=== PATIENT | female | born 1990 | race African-American/Black ===

== ENCOUNTER 2016-05-10 07:35 | Emergency (ER) | payer MEDICAID ==
[~2016-05-10] VITALS: Ht 167.6 cm; Wt 54.5 kg
[~2016-05-10 07:35] MED LIST: FAMO20TA7 PO; HYDR-3138 PO; METR500T PO; ONDA4TAB10 PO
[2016-05-10] MEDS ORDERED: KETOROLAC 30 MG/1 ML IVPush ONE (08:00)
[2016-05-10] MEDS ORDERED: METOCLOPRAMIDE 5 MG/ML, 2ML IVPush ONE (08:00)
[2016-05-10] MEDS ORDERED: DIPHENHYDRAMINE 50 MG/ML, 1ML IVPush ONE (08:00)
[2016-05-10] MEDS ORDERED: SODIUM CHLORIDE 0.9% 1,000ML IV ONE (08:00)
[2016-05-10] MEDS ORDERED: SODIUM CHLORIDE FLUSH 10ML SYR IVF ONE (08:00)
[2016-05-10] MEDS ORDERED: KETOROLAC 30 MG/1 ML ONE (08:11)
[2016-05-10] MEDS ORDERED: METOCLOPRAMIDE 5 MG/ML, 2ML ONE (08:12)
[2016-05-10] MEDS ORDERED: DIPHENHYDRAMINE 50 MG/ML, 1ML ONE (08:12)
[2016-05-10 08:17] LABS: HEMOGLOBIN 15.6 g/dL (11.7-16.4)
[2016-05-10 08:26] LABS: ASPARTATE AMINO TRANSFERASE 11 U/L (15-37); BLOOD UREA NITROGEN 11 mg/dL (7-18)
[2016-05-10] MEDS ORDERED: POTASSIUM CHLORIDE 40 MEQ in SODIUM CHLORIDE 0.9% 500 ML IV ONE (09:00)
[2016-05-10] MEDS: POTASSIUM CHLORIDE 20 MEQ TAB.ER.PRT PO ONE ×2 (09:40→11:14)
[2016-05-10] MEDS ORDERED: MORPHINE SULFATE 4 MG/ML, 1ML ONE (11:13)
[2016-05-10] MEDS ORDERED: ONDANSETRON 2MG/ML, 2ML ONE (11:13)
[2016-05-10] MEDS ORDERED: ONDANSETRON 2MG/ML, 2ML IVPush ONE (11:30)
[2016-05-10] MEDS ORDERED: morphine SULFATE 10 MG/ML, 1ML IVPush ONE (11:30)
[2016-05-10 14:24] LABS: BLOOD UREA NITROGEN 10 mg/dL (7-18)
[2016-05-10 15:33] LABS: ICTOTEST NEGATIVE
[2016-05-10] MEDS ORDERED: MAALOX/HYOSCYAMINE/LIDOCAINE 45 ML BOTTLE ONE (16:54)
[2016-05-10 17:10] VITALS: BP 118/70
[2016-05-10] MEDS ORDERED: MAALOX/HYOSCYAMINE/LIDOCAINE 45 ML BOTTLE PO ONE (17:30)
== END 2016-05-10 17:13 | disposition home or self-care (01) ==
LOC: ED 08:38
DX: R11.2 Nausea with vomiting, unspecified (principal); M54.5 Low back pain; R10.9 Unspecified abdominal pain; G89.29 Other chronic pain
CPT/HCPCS: 36415; 80048; 80053; 81001; 84132; 84703; 85025; 93005; 96361; 96365; 96366; 96375; 99285; J1200; J1885; J2270; J2405; J2765; J3480; J7030; J7040

== ENCOUNTER 2016-06-06 14:45 | Emergency (ER) | payer MEDICAID ==
[~2016-06-06] VITALS: Ht 165.1 cm; Wt 47.0 kg
[2016-06-06 15:54] LABS: BLOOD UREA NITROGEN 7 mg/dL (7-18)
[2016-06-06] MEDS ORDERED: FAMOTIDINE 20 MG/2 ML IVP ONE (16:00)
[2016-06-06] MEDS ORDERED: SODIUM CHLORIDE FLUSH 10ML SYR IVF ONE (16:00)
[2016-06-06] MEDS ORDERED: ONDANSETRON 2MG/ML, 2ML IVPush ONE (16:00)
[2016-06-06] MEDS ORDERED: SODIUM CHLORIDE 0.9% 1,000ML IVBOLUS ONE (16:00)
[2016-06-06 16:14] LABS: ASPARTATE AMINO TRANSFERASE 10 U/L (15-37)
[2016-06-06] MEDS ORDERED: ONDANSETRON 2MG/ML, 2ML ONE (16:26)
[2016-06-06] MEDS ORDERED: FAMOTIDINE 20 MG/2 ML ONE (16:27)
[2016-06-06 18:33] VITALS: BP 102/68
== END 2016-06-06 18:36 | disposition home or self-care (01) ==
LOC: ED 18:30
DX: R11.2 Nausea with vomiting, unspecified (principal); M54.9 Dorsalgia, unspecified; G89.29 Other chronic pain
CPT/HCPCS: 36415; 80048; 80076; 81003; 82040; 83690; 84702; 84703; 85025; 99284

== ENCOUNTER 2016-06-08 09:47 | Emergency (ER) | payer MEDICAID ==
[~2016-06-08] VITALS: Ht 165.1 cm; Wt 45.2 kg
[2016-06-08 09:47] VITALS: BP 104/72
[2016-06-08] MEDS ORDERED: LIDOCAINE 2%, 10ML INFIL ONE (10:30)
[2016-06-08] MEDS ORDERED: LIDOCAINE-MPF 2% ,5ML ONE (10:40)
== END 2016-06-08 11:49 | disposition left against medical advice (07) ==
LOC: ED 11:03
DX: K61.1 Rectal abscess (principal); F17.210 Nicotine dependence, cigarettes, uncomplicated
CPT/HCPCS: 99281

== ENCOUNTER 2017-04-11 05:02 | Emergency (ER) | payer MEDICAID ==
[~2017-04-11] VITALS: Ht 165.1 cm; Wt 55.0 kg
[~2017-04-11 05:02] MED LIST changes: -HYDR-3138 PO; +HYDR-3237 PO
[2017-04-11] MEDS ORDERED: METOCLOPRAMIDE 5 MG/ML, 2ML ONE (05:22)
[2017-04-11] MEDS ORDERED: METOCLOPRAMIDE 5 MG/ML, 2ML IVPush ONE (05:30)
[2017-04-11 05:43] LABS: ALANINE AMINOTRANSFERASE 12 U/L (12-78); ALBUMIN 3.7 g/dL (3.4-5.0); ANION GAP 9 mmol/L (5-15); CALCIUM 8.6 mg/dL (8.5-10.1); CHLORIDE 113 mmol/L (98-107)
[2017-04-11 05:48] LABS: ALKALINE PHOSPHATASE 54 U/L (45-117); BILIRUBIN,TOTAL 0.7 mg/dL (0.2-1.0); TOTAL PROTEIN 7.1 g/dL (6.4-8.2)
[2017-04-11] MEDS ORDERED: HALOPERIDOL 5 MG/ML ONE (05:53)
[2017-04-11 05:56] LABS: BASOPHILS # (AUTO) 0.08 x10^3/uL (0-0.1); BASOPHILS % (AUTO) 1 % (0-1); EOSINOPHILS # (AUTO) 0.05 x10^3/uL (0-0.4); EOSINOPHILS % (AUTO) 1 % (1-7); LYMPHOCYTES # (AUTO) 2.65 x10^3/uL (1-3.4); LYMPHOCYTES % (AUTO) 41 % (22-44); MD MORPH REVIEW ONLY; MEAN CORPUSCULAR HEMOGLOBIN 27.8 pg (27.0-34.8); MEAN CORPUSCULAR HGB CONC 32.8 g/dL (32.4-35.8); MEAN CORPUSCULAR VOLUME 84.6 fL (80-100); MEAN PLATELET VOLUME 9.7 fL (7.4-10.4); MONOCYTES # (AUTO) 0.45 x10^3/uL (0.2-0.8); MONOCYTES % (AUTO) 7 % (2-9); NEUTROPHILS # (AUTO) 3.31 x10^3/uL (1.8-6.8); NEUTROPHILS % (AUTO) 51 % (42-75); PLATELET COUNT 281 x10^3/uL (130-400); RED BLOOD COUNT 4.34 x10^6/uL (3.82-5.3); RED CELL DISTRIBUTION WIDTH 14.1 % (9.6-15.2)
[2017-04-11 05:57] LABS: <PLATELET ESTIMATE> ADEQUATE; <RBC MORPHOLOGY> NORMAL; LARGE PLATELETS 1+
[2017-04-11] MEDS ORDERED: HALOPERIDOL 5 MG/ML IM ONE (06:00)
[2017-04-11 06:52] LABS: MICROSCOPIC NOT IND
[2017-04-11 06:57] LABS: CULTURE INDICATED? NO
[2017-04-11] MEDS ORDERED: POTASSIUM CHLORIDE 20 MEQ TAB.ER.PRT ONE (07:23)
[2017-04-11] MEDS ORDERED: POTASSIUM CHLORIDE 20 MEQ TAB.ER.PRT PO ONE (07:30)
[2017-04-11 07:48] VITALS: BP 142/87
== END 2017-04-11 07:50 | disposition home or self-care (01) ==
LOC: ED 06:22
DX: R10.84 Generalized abdominal pain (principal); R11.2 Nausea with vomiting, unspecified; E87.6 Hypokalemia; G89.29 Other chronic pain; G43.A0 Cyclical vomiting, in migraine, not intractable
CPT/HCPCS: 36415; 80053; 81003; 83690; 84703; 85025; 96372; 96374; 99284; J1630; J2765

== ENCOUNTER 2017-05-02 13:07 | Inpatient (IN) | payer MEDICAID ==
[~2017-05-02] VITALS: Ht 160 cm; Wt 49.7 kg
[2017-05-02] MEDS ORDERED: SODIUM CHLORIDE 0.9% 1,000 ML IV ONE (13:23)
[2017-05-02] MEDS ORDERED: METOCLOPRAMIDE 5 MG/ML, 2ML IVPush ONE (13:30)
[2017-05-02] MEDS ORDERED: SODIUM CHLORIDE FLUSH 10ML SYR IVF ONE (13:30)
[2017-05-02] MEDS ORDERED: HALOPERIDOL 5 MG/ML IM PRN (13:30)
[2017-05-02] MEDS ORDERED: SODIUM CHLORIDE 0.9% 1,000ML IVBOLUS ONE (13:30)
[2017-05-02] MEDS ORDERED: HALOPERIDOL 5 MG/ML ONE (13:33)
[2017-05-02] MEDS ORDERED: METOCLOPRAMIDE 5 MG/ML, 2ML ONE (13:34)
[2017-05-02 14:10] LABS: ALANINE AMINOTRANSFERASE 18 U/L (12-78); ALBUMIN 3.1 g/dL (3.4-5.0); ANION GAP 9 mmol/L (5-15); CALCIUM 8.1 mg/dL (8.5-10.1); CHLORIDE 105 mmol/L (98-107); CREATININE 0.56 mg/dL (0.55-1.02)
[2017-05-02 14:15] LABS: ALKALINE PHOSPHATASE 52 U/L (45-117); BILIRUBIN,TOTAL 0.6 mg/dL (0.2-1.0); TOTAL PROTEIN 6.4 g/dL (6.4-8.2)
[2017-05-02 14:17] LABS: MEAN CORPUSCULAR HEMOGLOBIN 27.6 pg (27.0-34.8); MEAN CORPUSCULAR HGB CONC 32.6 g/dL (32.4-35.8); MEAN CORPUSCULAR VOLUME 84.6 fL (80-100); MEAN PLATELET VOLUME 8.3 fL (7.4-10.4); PLATELET COUNT 343 x10^3/uL (130-400); RED BLOOD COUNT 4.46 x10^6/uL (3.82-5.3); RED CELL DISTRIBUTION WIDTH 13.2 % (9.6-15.2)
[2017-05-02 14:29] LABS: BASOPHILS # (AUTO) 0.04 x10^3/uL (0-0.1); BASOPHILS % (AUTO) 1 % (0-1); EOSINOPHILS # (AUTO) 0.03 x10^3/uL (0-0.4); EOSINOPHILS % (AUTO) 1 % (1-7); LYMPHOCYTES # (AUTO) 1.29 x10^3/uL (1-3.4); LYMPHOCYTES % (AUTO) 35 % (22-44); MD SCAN; MONOCYTES # (AUTO) 0.36 x10^3/uL (0.2-0.8); MONOCYTES % (AUTO) 10 % (2-9); NEUTROPHILS # (AUTO) 1.97 x10^3/uL (1.8-6.8); NEUTROPHILS % (AUTO) 54 % (42-75)
[2017-05-02] MEDS: POTASSIUM CHLORIDE 20 MEQ TAB.ER.PRT PO ONE ×2 (15:00→15:13)
[2017-05-02] MEDS ORDERED: POTASSIUM CHLORIDE 20 MEQ TAB.ER.PRT ONE (15:07)
[2017-05-02] MEDS ORDERED: SODIUM CHLORIDE FLUSH 10ML SYR IVF PRN (17:00)
[2017-05-02] MEDS ORDERED: POTASSIUM CHLORIDE 20 MEQ in SODIUM CHLORIDE 0.9% 1,000 ML IV ONE (17:00)
[2017-05-02 17:11] LABS: MICROSCOPIC INDICATED
[2017-05-02 17:22] LABS: CULTURE INDICATED? NO
[2017-05-02] MEDS ORDERED: PROMETHAZINE 25 MG/ML, 1ML IM PRN (17:30)
[2017-05-02] MEDS ORDERED: METOCLOPRAMIDE 5 MG/ML, 2ML IVPush PRN (17:30)
[2017-05-02] MEDS ORDERED: ACETAMINOPHEN 325 MG TABLET PO PRN (17:30)
[2017-05-02] MEDS ORDERED: ONDANSETRON ODT 4 MG PO PRN (17:30)
[2017-05-02] MEDS ORDERED: ONDANSETRON 2MG/ML, 2ML IVPush PRN (17:30)
[2017-05-02] MEDS ORDERED: ENOXAPARIN 40 MG/0.4 ML SQ SCH (18:00)
[2017-05-02] MEDS ORDERED: NICOTINE 7 MG/24 HR PATCH.TD24 TD SCH (18:00)
[2017-05-02 18:50] LABS: AMPHETAMINE SCREEN, URINE Negative (Negative); BARBITURATE SCREEN, URINE Negative (Negative); BENZODIAZEPINE SCREEN, URINE Positive (Negative); CANNABINOID SCREEN, URINE Positive (Negative); COCAINE SCREEN, URINE Negative (Negative); METHADONE SCREEN, URINE Negative (Negative); OPIATE SCREEN, URINE Negative (Negative)
[2017-05-02] MEDS: NS + 40MEQ KCL 1,000 ML IV SCH (18:53)
[2017-05-02 19:49] VITALS: BP 128/72
[2017-05-03 01:10] VITALS: BP 107/62
[2017-05-03 05:49] LABS: ANION GAP 9 mmol/L (5-15); CALCIUM 8.3 mg/dL (8.5-10.1); CHLORIDE 104 mmol/L (98-107); CREATININE 0.57 mg/dL (0.55-1.02)
[2017-05-03] MEDS: NS + 40MEQ KCL 1,000 ML IV SCH (07:00)
[2017-05-03 07:29] VITALS: BP 93/59
[2017-05-03] MEDS ORDERED: MAGNESIUM SULFATE PMX 4GM/100M 100 ML IV ONE (07:30)
[2017-05-03] MEDS ORDERED: POTASSIUM CHLORIDE 40 MEQ in SODIUM CHLORIDE 0.9% 500 ML IV ONE (08:00)
== END 2017-05-03 08:19 | disposition left against medical advice (07) | DRG 641 ==
LOC: ED 14:22 → EDIP 17:00 → 3NE 17:31
PROVIDERS: ADMIT Family Medicine; ATTEND Family Medicine
DX: E87.6 Hypokalemia (principal); E86.0 Dehydration; E83.42 Hypomagnesemia; F12.90 Cannabis use, unspecified, uncomplicated; Z91.19 Patient's noncompliance with other medical treatment and regimen; F17.210 Nicotine dependence, cigarettes, uncomplicated; R11.2 Nausea with vomiting, unspecified; M54.9 Dorsalgia, unspecified; G89.29 Other chronic pain
CPT/HCPCS: 36415; 74021; 80048; 80053; 80307; 81001; 83690; 83735; 84703; 85025; 96361; 96372; 96374; J1650; J1630; J2765; J3480; J7030

== ENCOUNTER 2017-05-18 07:57 | Emergency (ER) | payer MEDICAID ==
[~2017-05-18] VITALS: Ht 165.1 cm; Wt 50.0 kg
[2017-05-18] MEDS ORDERED: SODIUM CHLORIDE 0.9% 1,000 ML IV ONE (08:11)
[2017-05-18] MEDS ORDERED: PROMETHAZINE 25 MG/ML, 1ML ONE (08:25)
[2017-05-18] MEDS ORDERED: ONDANSETRON 2MG/ML, 2ML ONE (08:25)
[2017-05-18] MEDS ORDERED: ONDANSETRON 2MG/ML, 2ML IVPush ONE (08:30)
[2017-05-18] MEDS ORDERED: SODIUM CHLORIDE FLUSH 10ML SYR IVF ONE (08:30)
[2017-05-18] MEDS ORDERED: PLEASE ENTER HEIGHT AND WEIGHT MC SCH (08:30)
[2017-05-18] MEDS ORDERED: SODIUM CHLORIDE 0.9% 1,000ML IVBOLUS ONE (08:30)
[2017-05-18] MEDS ORDERED: PROMETHAZINE 25 MG/ML, 1ML IM ONE (08:30)
[2017-05-18 08:46] LABS: MEAN CORPUSCULAR HEMOGLOBIN 27.2 pg (27.0-34.8); MEAN CORPUSCULAR HGB CONC 32.2 g/dL (32.4-35.8); MEAN CORPUSCULAR VOLUME 84.4 fL (80-100); MEAN PLATELET VOLUME 8.6 fL (7.4-10.4); PLATELET COUNT 434 x10^3/uL (130-400); RED BLOOD COUNT 5.19 x10^6/uL (3.82-5.3); RED CELL DISTRIBUTION WIDTH 13.8 % (9.6-15.2)
[2017-05-18 08:47] LABS: ALANINE AMINOTRANSFERASE 23 U/L (12-78); ALBUMIN 3.5 g/dL (3.4-5.0); ANION GAP 12 mmol/L (5-15); CALCIUM 8.9 mg/dL (8.5-10.1); CHLORIDE 109 mmol/L (98-107); CREATININE 0.66 mg/dL (0.55-1.02)
[2017-05-18 08:52] LABS: ALKALINE PHOSPHATASE 72 U/L (45-117); BILIRUBIN,TOTAL 0.5 mg/dL (0.2-1.0); TOTAL PROTEIN 7.5 g/dL (6.4-8.2)
[2017-05-18 08:55] LABS: BASOPHILS # (AUTO) 0.02 x10^3/uL (0-0.1); BASOPHILS % (AUTO) 0 % (0-1); EOSINOPHILS # (AUTO) 0.04 x10^3/uL (0-0.4); EOSINOPHILS % (AUTO) 1 % (1-7); LYMPHOCYTES # (AUTO) 2.09 x10^3/uL (1-3.4); LYMPHOCYTES % (AUTO) 32 % (22-44); MONOCYTES # (AUTO) 0.22 x10^3/uL (0.2-0.8); MONOCYTES % (AUTO) 3 % (2-9); NEUTROPHILS % (AUTO) 64 % (42-75)
[2017-05-18 08:59] LABS: MD NO
[2017-05-18 11:00] LABS: MICROSCOPIC NOT IND
[2017-05-18 11:09] LABS: CULTURE INDICATED? NO
[2017-05-18] MEDS ORDERED: ZIPRASIDONE 20 MG INJ IM ONE ×2 (11:42→12:00)
[2017-05-18] MEDS ORDERED: KETAMINE 100 MG/ML, 5ML IV ONE (13:30)
[2017-05-18] MEDS ORDERED: KETAMINE 10 MG/ML, 20ML ONE (13:30)
[2017-05-18 14:03] VITALS: BP 125/80
== END 2017-05-18 15:20 | disposition home or self-care (01) ==
LOC: ED 08:31
DX: G43.A1 Cyclical vomiting, in migraine, intractable (principal); E86.0 Dehydration
CPT/HCPCS: 36415; 80053; 81003; 83690; 84703; 85025; 96361; 96372; 96374; 96375; 99285; J2405; J2550; J3486; J7030